=== PATIENT | female | born 1990 | race Two or more races ===

== ENCOUNTER → 2017-05-24 | Emergency (ER) | payer OTHER ==
[~2017-05-24] VITALS: Ht 165.1 cm; Wt 78.0 kg
== END | disposition home or self-care (01) ==
LOC: ER 10:21
DX: Z34.81 Encounter for supervision of other normal pregnancy, first trimester (principal); O20.0 Threatened abortion

== ENCOUNTER 2017-05-30 23:43 | Emergency (ER) | payer OTHER ==
[~2017-05-30] VITALS: Ht 165.1 cm; Wt 76.7 kg
[2017-05-31] MEDS ORDERED: ZOFRAN ODT4 MG PO (07:10)
[2017-05-31] MEDS ORDERED: PEPCID40 MG PO (07:10)
[2017-05-31] MEDS ORDERED: LEVSIN/SL0.125 MG SL (07:10)
== END 2017-05-31 07:37 | disposition home or self-care (01) ==
LOC: ER 23:43 → EMR PED 23:56
DX: O26.891 Other specified pregnancy related conditions, first trimester (principal); K52.9 Noninfective gastroenteritis and colitis, unspecified; Z34.81 Encounter for supervision of other normal pregnancy, first trimester

== ENCOUNTER 2017-10-01 13:49 | Emergency (ER) | payer OTHER ==
[~2017-10-01] VITALS: Ht 165.1 cm; Wt 76.7 kg
[~2017-10-01 13:49] MED LIST: LEVSIN/SL0.125 MG SL; PEPCID40 MG PO; ZOFRAN ODT4 MG PO
== END 2017-10-01 22:27 | disposition home or self-care (01) ==
LOC: ER 13:49
DX: I10 Essential (primary) hypertension (principal); E11.9 Type 2 diabetes mellitus without complications

== ENCOUNTER 2017-10-17 04:23 | Emergency (ER) | payer OTHER ==
[~2017-10-17] VITALS: Ht 165.1 cm; Wt 76.2 kg
[2017-10-17] MEDS ORDERED: LOSARTAN-HCTZ1 EACH (04:37)
[2017-10-17] MEDS ORDERED: METFORMIN HCL1000 MG (04:37)
[2017-10-17] MEDS ORDERED: INDERAL LA80 MG (04:38)
== END 2017-10-17 13:35 | disposition home or self-care (01) ==
LOC: ER 04:23
DX: R07.89 Other chest pain (principal); M94.0 Chondrocostal junction syndrome [Tietze]

== ENCOUNTER 2018-02-13 09:09 | Emergency (ER) | payer OTHER ==
[~2018-02-13] VITALS: Ht 165.1 cm; Wt 80.7 kg
[~2018-02-13 09:09] MED LIST changes: +INDERAL LA80 MG; +LOSARTAN-HCTZ1 EACH; +METFORMIN HCL1000 MG
== END 2018-02-13 11:47 | disposition home or self-care (01) ==
LOC: ER 09:09
DX: J02.8 Acute pharyngitis due to other specified organisms (principal)

== ENCOUNTER 2018-07-02 08:42 | Inpatient (IN) | payer OTHER ==
[~2018-07-02] VITALS: Ht 165.1 cm; Wt 78.5 kg
== END 2018-07-07 16:42 | disposition home or self-care (01) | DRG 833 ==
LOC: ER 08:42 → SEC-K 10:24 → OB/GYN 10:24
PROVIDERS: ADMIT Obstetrics & Gynecology
DX: O24.414 Gestational diabetes mellitus in pregnancy, insulin controlled (principal); Z34.81 Encounter for supervision of other normal pregnancy, first trimester

== ENCOUNTER 2018-12-31 14:57 | Inpatient (IN) | payer OTHER ==
[~2018-12-31] VITALS: Ht 165.1 cm; Wt 4.1 kg
[2019-01-22] MEDS ORDERED: HUMULIN R500 UNIT/2 ID (09:17)
[2019-01-22] MEDS ORDERED: DIALYVITE 800-1 EACH PO (09:20)
[2019-01-22] MEDS ORDERED: ASPIR 8181 MG PO (09:21)
[2019-01-22] MEDS ORDERED: PRENATE ELITE1 EAC2 PO (09:21)
[2019-01-22] MEDS ORDERED: HUMULIN N100 UNIT/2 ID (09:22)
== END 2019-01-26 14:30 | DRG 788 ==
LOC: LDR 01-22 08:02 → OB/GYN 01-22 08:02 → O/R 01-22 18:20 → OB/GYN 01-22 19:15
PROVIDERS: ADMIT Obstetrics & Gynecology
PROC: 4A1HXCZ Monitoring of Products of Conception, Cardiac Rate, External Approach (ICD-10-PCS; 2019-01-22)
PROC: 4A033R1 Measurement of Arterial Saturation, Peripheral, Percutaneous Approach (ICD-10-PCS; 2019-01-22)
PROC: 10D00Z1 Extraction of Products of Conception, Low, Open Approach (ICD-10-PCS; principal; 2019-01-22 15:15)
DX: O33.5XX0 Maternal care for disproportion due to unusually large fetus, not applicable or unspecified (principal); Z3A.39 39 weeks gestation of pregnancy; Z37.0 Single live birth

== ENCOUNTER 2019-05-05 00:29 | Emergency (ER) | payer OTHER ==
[~2019-05-05] VITALS: Ht 165.1 cm; Wt 77.1 kg
[~2019-05-05 00:29] MED LIST changes: +ASPIR 8181 MG PO; +DIALYVITE 800-1 EACH PO; +HUMULIN N100 UNIT/2 ID; +HUMULIN R500 UNIT/2 ID; +PRENATE ELITE1 EAC2 PO
[2019-05-05] MEDS ORDERED: FORTAMET1000 MG (01:30)
[2019-05-05] MEDS ORDERED: COZAAR50 MG PO (05:33)
== END 2019-05-05 06:08 | disposition home or self-care (01) ==
LOC: ER 00:29
DX: I10 Essential (primary) hypertension (principal)

== ENCOUNTER 2020-01-05 16:20 | Emergency (ER) | payer OTHER ==
[~2020-01-05] VITALS: Ht 165.1 cm; Wt 72.6 kg
[~2020-01-05 16:20] MED LIST changes: +COZAAR50 MG PO; +FORTAMET1000 MG
== END 2020-01-05 22:59 | disposition home or self-care (01) ==
LOC: ER 16:20
DX: K80.18 Calculus of gallbladder with other cholecystitis without obstruction (principal)

== ENCOUNTER 2023-01-04 09:23 | Emergency (ER) | payer OTHER ==
[~2023-01-04] VITALS: Ht 160 cm; Wt 74.4 kg
[2023-01-04] MEDS ORDERED: LABETALOL HCL100 MG PO (09:45)
[2023-01-04 10:39] LABS: HEMATOCRIT 35.5 % (36.0-45.00); HEMOGLOBIN 11.7 g/dL (12.0-15.00); MEAN CELL VOLUME 85.5 fL (80.00-100.00); MEAN CORPUSCULAR HEMOGLOBIN 28.1 pg (27.00-32.0); MEAN CORPUSCULAR HGB CONC 32.9 g/dl (32.0-36.0); PLATELET COUNT 469 K/uL (150-450); RED BLOOD COUNT 4.16 M/uL (4.00-6.00); RED CELL DISTRIBUTION WIDTH 14.5 % (11.5-14.5)
[2023-01-04 10:45] LABS: URINE APPEARANCE Clear; URINE BILIRRUBIN Negative (NEGATIVE); URINE BLOOD Negative; URINE COLOR Yellow; URINE GLUCOSE Negative (NEGATIVE); URINE LEUKOCYTE Negative; URINE NITRATE Negative; URINE PROTEIN Negative (NEGATIVE)
[2023-01-04 10:50] LABS: URINE EPITHELIAL CELLS 14.8 uL (0.0-38.8); URINE RBC 5.8 uL (0.0-20.8)
== END 2023-01-04 13:51 | disposition home or self-care (01) ==
LOC: ER 09:23
PROVIDERS: General Practice
DX: R11.10 Vomiting, unspecified (principal); Z20.822 Contact with and (suspected) exposure to COVID-19

== ENCOUNTER 2024-10-26 23:16 | Emergency (ER) | payer OTHER ==
[~2024-10-26] VITALS: Ht 160 cm; Wt 72.6 kg
[~2024-10-26 23:16] MED LIST changes: +CHILDREN'S ASPI81 MG PO; +FOLIC ACID0.8 M1 PO; +IBUPROFEN800 MG PO; +LABETALOL HCL100 MG PO; +METFORMIN HCL1000 M2 PO; +PRENATABS RX T1 EACH PO; +ZITHROMAX500 MG PO; +ZYNCOF 20-400120 ML PO
[2024-10-26] MEDS ORDERED: KETOROLAC TROMETHAMINE 60 MG VIAL IM ONE ×2 (23:45→23:57)
[2024-10-26] MEDS ORDERED: ORPHENADRINE CITRATE 30 MG/ML AMPUL IM ONE (23:45)
[2024-10-26] MEDS ORDERED: NORFLEX100MG PO (23:47)
[2024-10-26] MEDS ORDERED: ORPHENADRINE CITRATE 30 MG/ML AMPUL ONE (23:56)
== END 2024-10-27 00:09 | disposition home or self-care (01) ==
LOC: ER 23:57
DX: M62.830 Muscle spasm of back (principal); E11.9 Type 2 diabetes mellitus without complications; Z79.84 Long term (current) use of oral hypoglycemic drugs; I10 Essential (primary) hypertension; Z88.8 Allergy status to other drugs, medicaments and biological substances